=== PATIENT | female | born 1995 | race Caucasian/White ===

== ENCOUNTER 2016-09-29 14:17 | Emergency (ER) | payer BC ==
[~2016-09-29] VITALS: Ht 182.9 cm; Wt 157.9 kg
[~2016-09-29 14:17] MED LIST: DOXY100T2 PO; METR500T PO
[2016-09-29 15:00] LABS: BILIRUBIN,URINE NEGATIVE (NEGATIVE); KETONES,URINE NEGATIVE (NEGATIVE); LEUKOCYTE ESTERASE ,URINE 1+ (NEGATIVE); NITRITE,URINE NEGATIVE (NEGATIVE); PH,URINE 7 (5-9); PROTEIN,URINE 1+ (NEGATIVE); UROBILINOGEN,URINE NORMAL (NORMAL)
[2016-09-29 15:13] LABS: WBC,URINE 0-2 /HPF
--- NOTE | 2016-09-29 15:23 | ED GU-Female ---
General Chief Complaint: -Female Stated Complaint: UTI, ABD PAIN Nursing Triage Note: PT SENT FROM [facility] W POSSIBLE UTI, KIDNEY STONE Nursing Sepsis Screen: No Definite Risk Source: patient Exam Limitations: no limitations History of Present Illness Time seen by provider: 15:23 Initial Comments 21-year-old female patient presents to the emergency department complains of hematuria 1 today. Patient states she was seen at urgent care instructed to come to the emergency department for possible kidney stone patient does complain of suprapubic abdominal pain radiating around the left flank into the back. Patient states she was prescribed Flagyl by [facility] earlier this week for possible colitis. Timing/Duration: this morning Severity/Quality: aching Location: suprapubic Radiation: back (left back), left flank, urethral Activities at Onset: none Prior Genitourinary Problems: none Modifying Factors: Worsens With Palpation, Worsens With Urinating Allergies and Home Medications Allergies Coded Allergies: cefaclor (Verified Allergy, Unknown, 11/20/15) "appendages swell" latex (Verified Allergy, Unknown, 11/20/15) Home Medications Doxycycline Hyclate 100 Mg Tablet, 100 MG PO BID, #14 Prescribed by: NALINI DAWN on 11/20/15 1651 Metronidazole 500 Mg Tablet, 500 MG PO BID, #14 Prescribed by: NALINI DAWN on 11/20/15 1651 Ondansetron 8 Mg Tab.rapdis, 8 MG PO Q6H PRN for NAUSEA-1ST LINE, #10 Ref 0 Prescribed by: KIMMIE ORTIZ on 09/29/16 1722 Phenazopyridine HCl 200 Mg Tablet, 1 TAB PO Q8H PRN for PAIN, #30 Ref 0 Prescribed by: KIMMIE ORTIZ on 09/29/16 1722 Constitutional: No chills, No fever, malaise EENTM: no symptoms reported Respiratory: no symptoms reported Cardiovascular: no symptoms reported Gastrointestinal: see HPI, abdominal pain, No constipation, No diarrhea, loss of appetite, nausea, No vomiting Genitourinary: see HPI, denies burning, denies dysuria, denies frequency, flank pain, hematuria, pain : No Musculoskeletal: see HPI, back pain Skin: no symptoms reported Psychiatric/Neurological: No Symptoms Reported All Other Systemes Reviewed Negative Unless Noted: Yes (Negative excepted noted.) Past Jpucqwj-Fzyykl-Frqrdu Hx Patient Social History Alcohol Use: Denies Use Recreational Drug Use: No Smoking Status: Never a Smoker Recent Foreign Travel: No Contact w/Someone Who Travel: No Recent Infectious Disease Expo: No Recent Hopitalizations: No Surgeries HX Surgeries: Yes Surgeries: Adenoidectomy, Orthopedic, Tonsillectomy Respiratory Hx Respiratory Disorders: No Cardiovascular Hx Cardiac Disorders: No Neurological Hx Neurological Disorders: No Reproductive System : No (MERRENA) Genitourinary Hx Genitourinary Disorders: No Gastrointestinal Hx Gastrointestinal Disorders: No Musculoskeletal Hx Musculoskeletal Disorders: Yes Musculoskeletal Disorders: Chronic Back Pain Endocrine Hx Endocrine Disorders: Yes (THYROID) Cancer Hx Cancer: No Psychosocial Hx Psychiatric Problems: No Integumentary HX Skin/Integumentary Disorder: No Blood Transfusions Hx Blood Disorders: No Reviewed Nursing Assessment Reviewed/Agree w Nursing PMH: Yes Family Medical History Significant Family History: No Pertinent Family Hx Physical Exam Vital Signs Vital Sign - Last 12Hours 09/29/16 14:46 Temp 98.8 Pulse 95 Resp 16 B/P (MAP) 154/106 Pulse Ox 99 Capillary Refill : Less Than 3 Seconds General Appearance: WD/WN, no apparent distress HEENT: PERRL/EOMI, pharynx normal Neck: supple, normal inspection Cardiovascular: normal peripheral pulses, regular rate, rhythm, no murmur Respiratory: lungs clear, normal breath sounds, no respiratory distress Gastrointestinal: normal bowel sounds, soft, no organomegaly, No distended, guarding (suprapubic, LLQ, lt flank), No rebound, tenderness (suprapubic, LLQ, LUQ, lt flank) Back: normal inspection, no CVA tenderness Extremities: normal inspection, normal capillary refill Neurologic/Psychiatric: alert, normal mood/affect, oriented x 3 Skin: normal color, warm/dry Progress/Results/Core Measures Results/Orders Lab Results Laboratory Tests Test 09/29/16 14:45 09/29/16 16:05 Range/Units Urine Color YELLOW Urine Clarity SLIGHTLY CLOUDY Urine pH 7 5-9 Urine Specific Magnet 1.010 L 1.016-1.022 Urine Protein 1+ H NEGATIVE Urine Glucose (UA) NEGATIVE NEGATIVE Urine Ketones NEGATIVE NEGATIVE Urine Nitrite NEGATIVE NEGATIVE Urine Bilirubin NEGATIVE NEGATIVE Urine Urobilinogen NORMAL NORMAL MG/DL Urine Leukocyte Esterase 1+ H NEGATIVE Urine RBC (Auto) NEGATIVE NEGATIVE Urine RBC NONE /HPF Urine WBC 0-2 /HPF Urine Squamous Epithelial Cells 2-5 /HPF Urine Crystals NONE /LPF Urine Bacteria NONE /HPF Urine Casts NONE /LPF Urine Mucus NEGATIVE /LPF Urine Culture Indicated NO White Blood Count 13.5 H 4.3-11.0 10^3/uL Red Blood Count 4.80 4.35-5.85 10^6/uL Hemoglobin 14.1 11.5-16.0 G/DL Hematocrit 42 35-52 % Mean Corpuscular Volume 88 80-99 FL Mean Corpuscular Hemoglobin 29 25-34 PG Mean Corpuscular Hemoglobin Concent 33 32-36 G/DL Red Cell Distribution Width 13.1 10.0-14.5 % Platelet Count 345 130-400 10^3/uL Mean Platelet Volume 11.7 H 7.4-10.4 FL Neutrophils (%) (Auto) 64 42-75 % Lymphocytes (%) (Auto) 26 12-44 % Monocytes (%) (Auto) 7 0-12 % Eosinophils (%) (Auto) 2 0-10 % Basophils (%) (Auto) 1 0-10 % Neutrophils # (Auto) 8.7 H 1.8-7.8 X 10^3 Lymphocytes # (Auto) 3.6 1.0-4.0 X 10^3 Monocytes # (Auto) 0.9 0.0-1.0 X 10^3 Eosinophils # (Auto) 0.3 0.0-0.3 10^3/uL Basophils # (Auto) 0.1 0.0-0.1 10^3/uL Sodium Level 142 135-145 MMOL/L Potassium Level 4.2 3.6-5.0 MMOL/L Chloride Level 109 H 98-107 MMOL/L Carbon Dioxide Level 21 21-32 MMOL/L Anion Gap 12 5-14 MMOL/L Blood Urea Nitrogen 15 7-18 MG/DL Creatinine 0.94 0.60-1.30 MG/DL Estimat Glomerular Filtration Rate > 60 BUN/Creatinine Ratio 16 Glucose Level 85 70-105 MG/DL Calcium Level 9.5 8.5-10.1 MG/DL Total Bilirubin 0.9 0.1-1.0 MG/DL Aspartate Amino Transf (AST/SGOT) 46 H 5-34 U/L Alanine Aminotransferase (ALT/SGPT) 61 H 0-55 U/L Alkaline Phosphatase 76 40-136 U/L Total Protein 7.6 6.4-8.2 G/DL Albumin 4.4 3.2-4.5 G/DL My Orders Orders - KIMMIE ORTIZ Ua Culture If Indicated (09/29/16 14:31) Urine Bedside (09/29/16 14:31) Cbc With Automated Diff (09/29/16 15:56) Comprehensive Metabolic Panel (09/29/16 15:56) Saline Lock/Iv-Start (09/29/16 15:56) Ct Abd/Pelvis Wo(Kidney Stone) (09/29/16 15:56) Ns Iv 1000 Ml (Sodium Chloride 0.9%) (09/29/16 15:56) Ondansetron Injection (Zofran Injectio (09/29/16 16:00) Ketorolac Injection (Toradol Injection) (09/29/16 15:56) Iohexol Injection (Omnipaque 350 Mg/Ml 1 (09/29/16 16:15) Ns (Ivpb) (Sodium Chloride 0.9% Ivpb Bag (09/29/16 16:15) Sodium Chloride Flush (Catheter Flush Sy (09/29/16 16:15) Hydrocodone/Apap 7.5/325 Tab (Lortab 7. (09/29/16 17:38) Medications Given in ED Vital Signs/I&O Blood Pressure Mean: 122 Point of Care Testing Urine -Bedside: Negative Diagnostic Imaging Diagonstic Imaging: CT Plain Films/CT/US/NM/MRI: abdomen, pelvis Comments rt ovarian cyst. no inflammatory changes or enlargement of the appendix. no obstructing kidney stone or acute abdominopelvic process noted. Reviewed: Discussed w/Radiologist (discussed with Анна Leroy) Departure Communication Progress Notes Laboratory and diagnostic findings were discussed with the patient. Patient reports pain is now a 3/10. We'll plan for discharge to home. Patient instructed to follow-up with [facility] for recheck. All return precautions were discussed with the patient as described in the discharge instructions this report. Patient voices understanding and agrees with the treatment plan. Patient ambulated from the emergency department without difficulty. Patient case discussed with Dr. Saunders, he agrees with the plan of care. Impression Impression: Primary Impression: Hematuria Additional Impressions: Left flank pain Abdominal pain Qualified Codes: R10.30 - Lower abdominal pain, unspecified Ovarian cyst Qualified Codes: N83.201 - Unspecified ovarian cyst, right side Disposition: 01 HOME, SELF-CARE Condition: Improved Departure-Patient Inst. Decision time for Depature: 17:20 Referrals: [facility] (PCP/Family) Primary Care Physician Patient Instructions: Blood in the Urine (Hematuria), Adult (DC), Ovarian Cyst (DC) Add. Discharge Instructions: All discharge instructions reviewed with patient and/or family. Voiced understanding. Medications as instructed. Tylenol Extra Strength over-the- counter as directed for pain. Ibuprofen 800 mg by mouth every 8 hours as needed for pain. Stop the metronidazole. Drink plenty of fluids. Follow-up with your primary care physician Saturday or Saturday for recheck, call first thing Saturday for appointment time. Return to the emergency department immediately for worsened pain, fever, vomiting, diarrhea, rectal bleeding, inability to urinate, or any other concerns. Scripts Ondansetron (Ondansetron Odt) 8 Mg Tab.rapdis 8 MG PO Q6H Y for NAUSEA-1ST LINE, #10 TAB 0 Refills Prov: KIMMIE ORTIZ 09/29/16 Phenazopyridine HCl (Pyridium) 200 Mg Tablet 1 TAB PO Q8H Y for PAIN, #30 TAB 0 Refills Prov: KIMMIE ORTIZ 09/29/16 Work/School Note: Work Release Form Date Seen in the Emergency Department: Sep 29, 2016 Return to Work: Oct 01, 2016 KIMMIE ORTIZ Sep 29, 2016 15:23
[2016-09-29] MEDS ORDERED: NS IV 1000 ML 1,000 ML IV ONE (15:56)
[2016-09-29] MEDS ORDERED: KETOROLAC 30 MG/ML VIAL IVP STA (15:56)
[2016-09-29] MEDS ORDERED: ONDANSETRON 4 MG/2 ML (SDV) Z0FRAN IVP ONE (16:00)
[2016-09-29 16:12] LABS: BASOPHILS # (AUTO) 0.1 10^3/uL (0.0-0.1); BASOPHILS % (AUTO) 1 % (0-10); EOSINOPHILS # (AUTO) 0.3 10^3/uL (0.0-0.3); EOSINOPHILS % (AUTO) 2 % (0-10); LYMPHOCYTES # (AUTO) 3.6 X 10^3 (1.0-4.0); LYMPHOCYTES % (AUTO) 26 % (12-44); MEAN CORPUSCULAR HEMOGLOBIN 29 PG (25-34); MEAN CORPUSCULAR HGB CONC 33 G/DL (32-36); MEAN CORPUSCULAR VOLUME 88 FL (80-99); MEAN PLATELET VOLUME 11.7 FL (7.4-10.4); MONOCYTES # (AUTO) 0.9 X 10^3 (0.0-1.0); MONOCYTES % (AUTO) 7 % (0-12); NEUTROPHILS # (AUTO) 8.7 X 10^3 (1.8-7.8); NEUTROPHILS % (AUTO) 64 % (42-75); PLATELET COUNT 345 10^3/uL (130-400); RED CELL DISTRIBUTION WIDTH 13.1 % (10.0-14.5); WHITE BLOOD COUNT 13.5 10^3/uL (4.3-11.0)
[2016-09-29] MEDS ORDERED: NS 100 ML (IVPB) BAG IV ONE (16:15)
[2016-09-29] MEDS ORDERED: IOHEXOL 350 MG/ML 100 ML (OMNIPAQUE 350) VIAL IV ONE (16:15)
[2016-09-29] MEDS ORDERED: CATHETER FLUSH 10 ML SYR IV PRN (16:15)
[2016-09-29 16:31] LABS: ALANINE AMINOTRANSFERASE 61 U/L (0-55); ALBUMIN 4.4 G/DL (3.2-4.5); ANION GAP 12 MMOL/L (5-14); ASPARTATE AMINO TRANSFERASE 46 U/L (5-34); BILIRUBIN,TOTAL 0.9 MG/DL (0.1-1.0); BLOOD UREA NITROGEN 15 MG/DL (7-18); BUN/CREATININE RATIO 16; CALCIUM 9.5 MG/DL (8.5-10.1); CARBON DIOXIDE 21 MMOL/L (21-32); CHLORIDE 109 MMOL/L (98-107); CREATININE SERUM 0.94 MG/DL (0.60-1.30); GFR ESTIMATED > 60; GLUCOSE 85 MG/DL (70-105); POTASSIUM 4.2 MMOL/L (3.6-5.0); SODIUM 142 MMOL/L (135-145); TOTAL PROTEIN 7.6 G/DL (6.4-8.2)
--- NOTE | 2016-09-29 17:19 | Diagnostic Imaging Report ---
PROCEDURE: CT urinary tract, rule out kidney stone. TECHNIQUE: Multiple contiguous axial images were obtained through the abdomen and pelvis without the use of intravenous contrast. INDICATION: Hematuria and left flank pain. COMPARISON: None. FINDINGS: The lung bases are clear. There is diffuse hepatic steatosis with focal sparing about the gallbladder fossa. No focal hepatic mass is seen. The gallbladder, pancreas, spleen and adrenal glands appear unremarkable. The kidneys appear unremarkable. No urinary tract calcifications or obstructive change is seen. The ureters appear unremarkable. The appendix is visualized and appears normal. There is no acute inflammatory process seen. There is an intrauterine device present. There is a 3.1 cm right ovarian cyst. No free fluid or adenopathy is demonstrated. There is a moderate amount of stool in the colon. No evidence of bowel obstruction. The abdominal aorta appears normal in caliber. No osseous abnormality is seen. IMPRESSION: 1. No acute abnormality is demonstrated. 2. Diffuse hepatic steatosis. 3. A 3.1 cm right ovarian cyst. Dictated by: Dictated on workstation # [id number]
[2016-09-29] MEDS ORDERED: ONDA8TAB13 PO (17:22)
[2016-09-29] MEDS ORDERED: PHEN-640 PO (17:22)
[2016-09-29] MEDS ORDERED: HYDROcodone/APAP 7.5 MG/325 MG (LORTAB, LORCET PLUS) TABLET PO STA (17:38)
[2016-09-29 17:57] VITALS: BP 151/90
--- OUTSIDE RECORDS SUMMARY | 2016-11-04 04:55 | XMS REPORT | Continuity of Care Document ---
Author Author [facility] Organization [facility] Address Unknown Phone Unavailable Allergies Active Description Code Type Severity Reaction Onset Reported/Identified Relationship to Patient Clinical Status Yes cefaclor [id number] Drug Allergy Unknown N/A 11/20/2015 Yes latex [id number] Drug Allergy Unknown N/A 11/20/2015 Medications Problems Date Dx Coded Attending Type Code Diagnosis Diagnosed By 11/20/2015 NALINI DAWN APRN Ot N72 INFLAMMATORY DISEASE OF CERVIX UTERI 11/20/2015 NALINI DAWN POLARITY TESTER Ot N76.0 ACUTE VAGINITIS 11/20/2015 NALINI DAWN APRN Ot Z97.5 PRESENCE OF (INTRAUTERINE) CONTRACEPTIVE 11/22/2015 NALINI DAWN POLARITY TESTER Ot N72 INFLAMMATORY DISEASE OF CERVIX UTERI 11/22/2015 NALINI DAWN POLARITY TESTER Ot N76.0 ACUTE VAGINITIS 11/22/2015 NALINI DAWN POLARITY TESTER Ot Z97.5 PRESENCE OF (INTRAUTERINE) CONTRACEPTIVE 09/29/2016 KIMMIE ROWE Ot K76.0 FATTY (CHANGE OF) LIVER, NOT ELSEWHERE C 09/29/2016 KIMMIE ROWE Ot N83.201 UNSPECIFIED OVARIAN CYST, RIGHT SIDE 09/29/2016 KIMMIE ROWE Ot R10.32 LEFT LOWER QUADRANT PAIN 09/29/2016 KIMMIE ROWE Ot R31.9 HEMATURIA, UNSPECIFIED 10/01/2016 KIMMIE ROWE Ot K76.0 FATTY (CHANGE OF) LIVER, NOT ELSEWHERE C 10/01/2016 KIMMIE ROWE Ot N83.201 UNSPECIFIED OVARIAN CYST, RIGHT SIDE 10/01/2016 KIMMIE ROWE Ot R10.32 LEFT LOWER QUADRANT PAIN 10/01/2016 KIMMIE ROWE Ot R31.9 HEMATURIA, UNSPECIFIED 10/05/2016 KIMMIE ROWE Ot K76.0 FATTY (CHANGE OF) LIVER, NOT ELSEWHERE C 10/05/2016 KIMMIE ROWE Ot N83.201 UNSPECIFIED OVARIAN CYST, RIGHT SIDE 10/05/2016 KIMMIE ROWE Ot R10.32 LEFT LOWER QUADRANT PAIN 10/05/2016 KIMMIE ROWE Ot R31.9 HEMATURIA, UNSPECIFIED Procedures Results Test Result Range Complete urinalysis with reflex to culture - 09/29/16 14:45 Urine color determination YELLOW NRG Urine clarity determination SLIGHTLY CLOUDY NRG Urine pH measurement by test strip 7 5- 9 Specific gravity of urine by test strip 1.010 1.016-1.022 Urine protein assay by test strip, semi-quantitative 1+ NEGATIVE Urine glucose detection by automated test strip NEGATIVE NEGATIVE Erythrocytes detection in urine sediment by light microscopy NEGATIVE NEGATIVE Urine ketones detection by automated test strip NEGATIVE NEGATIVE Urine nitrite detection by test strip NEGATIVE NEGATIVE Urine total bilirubin detection by test strip NEGATIVE NEGATIVE Urine urobilinogen measurement by automated test strip (mass/volume) NORMAL NORMAL Urine leukocyte esterase detection by dipstick 1+ NEGATIVE Automated urine sediment erythrocyte count by microscopy (number/high power field) NONE NRG Automated urine sediment leukocyte count by microscopy (number/high power field ) [HPF] NRG Bacteria detection in urine sediment by light microscopy NONE NRG Squamous epithelial cells detection in urine sediment by light microscopy 2-5 NRG Crystals detection in urine sediment by light microscopy NONE NRG Casts detection in urine sediment by light microscopy NONE NRG Mucus detection in urine sediment by light microscopy NEGATIVE NRG Complete urinalysis with reflex to culture NO NRG Complete blood count (CBC) with automated white blood cell (WBC) differential - 09/29/16 16:05 Blood leukocytes automated count (number/volume) 13.5 10*3/ uL 4.3-11.0 Blood erythrocytes automated count (number/volume) 4.80 10*6 /uL 4.35-5.85 Venous blood hemoglobin measurement (mass/volume) 14.1 g/dL 11.5-16.0 Blood hematocrit (volume fraction) 42 % 35-52 Automated erythrocyte mean corpuscular volume 88 [foz_us] 80-99 Automated erythrocyte mean corpuscular hemoglobin (mass per erythrocyte) 29 pg 25-34 Automated erythrocyte mean corpuscular hemoglobin concentration measurement ( mass/volume) 33 g/dL 32-36 Automated erythrocyte distribution width ratio 13.1 % 10.0-14.5 Automated blood platelet count (count/volume) 345 10*3/uL 130-400 Automated blood platelet mean volume measurement 11.7 [foz_ us] 7.4-10.4 Automated blood neutrophils/100 leukocytes 64 % 42-75 Automated blood lymphocytes/100 leukocytes 26 % 12-44 Blood monocytes/100 leukocytes 7 % 0-12 Automated blood eosinophils/100 leukocytes 2 % 0-10 Automated blood basophils/100 leukocytes 1 % 0-10 Blood neutrophils automated count (number/volume) 8.7 10*3 1.8-7.8 Blood lymphocytes automated count (number/volume) 3.6 10*3 1.0-4.0 Blood monocytes automated count (number/volume) 0.9 10*3 0.0-1.0 Automated eosinophil count 0.3 10*3/uL 0.0-0.3 Automated blood basophil count (count/volume) 0.1 10*3/uL 0.0-0.1 Comprehensive metabolic panel - 09/29/16 16:05 Serum or plasma sodium measurement (moles/volume) 142 mmol/ L 135-145 Serum or plasma potassium measurement (moles/volume) 4.2 mmol/L 3.6-5.0 Serum or plasma chloride measurement (moles/volume) 109 mmol /L 98-107 Carbon dioxide 21 mmol/L 21-32 Serum or plasma anion gap determination (moles/volume) 12 mmol/L 5-14 Serum or plasma urea nitrogen measurement (mass/volume) 15 mg/dL 7-18 Serum or plasma creatinine measurement (mass/volume) 0.94 mg /dL 0.60-1.30 Serum or plasma urea nitrogen/creatinine mass ratio 16 NRG Serum or plasma creatinine measurement with calculation of estimated glomerular filtration rate > NRG Serum or plasma glucose measurement (mass/volume) 85 mg/dL 70-105 Serum or plasma calcium measurement (mass/volume) 9.5 mg/dL 8.5-10.1 Serum or plasma total bilirubin measurement (mass/volume) 0.9 mg/dL 0.1-1.0 Serum or plasma alkaline phosphatase measurement (enzymatic activity/volume) 76 U/L 40-136 Serum or plasma aspartate aminotransferase measurement (enzymatic activity/ volume) 46 U/L 5-34 Serum or plasma alanine aminotransferase measurement (enzymatic activity/volume ) 61 U/L 0-55 Serum or plasma protein measurement (mass/volume) 7.6 g/dL 6.4-8.2 Serum or plasma albumin measurement (mass/volume) 4.4 g/dL 3.2-4.5 Encounters ACCT No. Visit Date/Time Discharge Status Pt. Type Provider Facility Loc./Unit Complaint [id number] 09/29/2016 14:19:00 2016 17:57:00 DIS Emergency KIMMIE ROWE [facility] ER UTI, ABD PAIN [id number] 11/20/2015 13:06:00 2015 17:01:00 DIS Emergency NALINI DAWN APRN [facility] ER ABD PAIN
== END 2016-09-29 17:57 | disposition home or self-care (01) ==
LOC: EDUNIT# 14:17 → ER 14:19
DX: R10.32 Left lower quadrant pain (principal); R31.9 Hematuria, unspecified; N83.201 Unspecified ovarian cyst, right side; K76.0 Fatty (change of) liver, not elsewhere classified
CPT/HCPCS: 36415; 74176; 80053; 81000; 84703; 85025; 96374; 96375